=== PATIENT | female | born 1965 | race Caucasian/White ===

== ENCOUNTER → 2020-07-26 | Outpatient (REF) | payer BC ==
[2020-07-26 12:29] LABS: APPEARANCE, URINE CLEAR (CLEAR); BACTERIA, URINE AUTO NEGATIVE (NEGATIVE); BILIRUBIN, URINE AUTO NEGATIVE (NEGATIVE); BLOOD, URINE BLOOD NEGATIVE (NEGATIVE); COLOR, URINE YELLOW (YELLOW); GLUCOSE, URINE (UA) AUTO NEGATIVE (NEGATIVE); KETONE, URINE AUTO NEGATIVE (NEGATIVE); LEUKOCYTE ESTERASE, URINE AUTO NEGATIVE (NEGATIVE); MUCUS, URINE SMALL (NEGATIVE); NITRITE, URINE AUTO NEGATIVE (NEGATIVE); PROTEIN, URINE AUTO NEGATIVE (NEGATIVE); RBC, URINE AUTO 0 /HPF (0-3); SPECIFIC GRAVITY URINE AUTO 1.018 (1.002-1.035); SQUAMOUS EPITHELIAL CELL UR AU 1 /HPF (0-6); UROBILINOGEN, URINE AUTO 0.2 mg/dL (0.0-2.0); WBC, URINE AUTO 0 /HPF (0-3)
[2020-07-26 12:50] LABS: DRVV SCREEN 36.1 SEC
[2020-07-26 12:53] LABS: PTT LUPUS TYPE ANTICOAG SCREEN 0.9 (0-1.2)
[2020-07-26 13:18] LABS: TOTAL PROTEIN,RANDOM URINE 7.6 MG/DL (0.0-12.0)
== END ==
LOC: M SFHCRHEU 10:27
PROVIDERS: ATTEND Internal Medicine
DX: R76.8 Other specified abnormal immunological findings in serum (principal); M25.40 Effusion, unspecified joint

== ENCOUNTER → 2020-09-05 | Outpatient (CLI) | payer BC | LOC: M SLEEP HO 10:05 | PROVIDERS: ATTEND Internal Medicine | DX: R53.83 Other fatigue (principal) ==